=== PATIENT | female | born 1955 | race Caucasian/White ===

== ENCOUNTER 2023-12-05 13:53 | Emergency (ER) | payer OTHER, SELFPAY ==
[2023-12-05] VITALS (8 sets, daily range): BP systolic 121–149; BP diastolic 65–84; PULSE 73–98; BMI 35.4
[2023-12-05] MEDS: ZOFRAN 4 MG IV (14:31)
[2023-12-05 14:38] LABS: % Basophils 0.5 % (0-2); % Eosinophils 0.2 % (0-6); % Immature Granulocytes 0.6 % (0-0.5); % Lymphocytes 7.9 % (20.5-51.1); % Monocytes 3.3 % (1.7-9.3); % Neutrophils 87.5 % (42.2-75.2); Absolute Basophils 0.1 10^3/uL (0-0.2); Absolute Immature Granulocytes 0.1 10^3/uL (0-0.05); Absolute Lymphocytes 0.9 10^3/uL (1.2-3.4); Absolute Monocytes 0.4 10^3/uL (0.1-0.6); Absolute Neutrophils 10.4 10^3/uL (1.4-6.5); Hematocrit 44.1 % (37.0-47.0); Hemoglobin 14.9 g/dL (12.0-16.0); Mean Corp Hgb Conc. 33.8 g/dL (33.0-37.0); Mean Corpuscular Volume 82.7 fL (81.0-99.0); Mean Platelet Volume 10.7 fL (7.4-10.4); Nucleated Red Blood Cells % 0 %; Platelet Count 206 10^3/uL (130-400); Red Blood Cell Count 5.33 10^6/uL (4.20-5.40); Red Cell Dist. Width 13.3 % (11.5-14.5); White Blood Cell Count 11.9 10^3/uL (4.8-10.8)
[2023-12-05 15:55] LABS: ALT (SGPT) 32 U/L (0-35); AST (SGOT) 32 U/L (14-36); Albumin 4.7 g/dl (3.5-5.0); Alkaline Phosphatase 75 U/L (38-126); Blood Urea Nitrogen 20 mg/dl (7-17); Calcium 9.5 mg/dl (8.4-10.2); Carbon Dioxide 28 mmol/L (22-30); Chloride 102 mmol/L (98-107); Estimated Creatinine Clearance 83 ml/min; Glucose 134 mg/dl (70-99); Potassium 4.6 mmol/L (3.5-5.1); Sodium 140 mmol/L (135-145); Total Bilirubin 0.4 mg/dl (0.2-1.3); Total Protein 7.3 g/dl (6.3-8.2); eGFR > 60.00
[2023-12-05 17:14] LABS: Urine Albumin Trace (Neg - Trace); Urine Bilirubin Negative (Negative); Urine Character Clear (Clear); Urine Color Yellow; Urine Glucose Trace (Negative); Urine Ketone Negative (Negative); Urine Leukocyte Negative (Negative); Urine Nitrite Negative (Negative); Urine Occult Blood Negative (Negative); Urine Urobilinogen Negative (Neg - 1+)
--- NOTE | 2023-12-05 17:46 | ED.GENMED ---
History of Present Illness
<Wm Martinez MD, Resident - Last Filed: 12/08/23 08:14>
General
Chief Complaint: Dizziness
Source: patient
Exam Limitations: none
Time Seen by Provider: 12/05/23 16:34
History of Present Illness
History of Present Illness:
)68-year-old female with past medical history of Sjogren, hypothyroidism, CAD, Hodgkin's lymphoma (Chemo-Port removed this September) presenting with dizziness which she defines as everything around her spinning. This started around 9 AM when she got
out of bed and was standing. Also felt very nauseous. Symptoms lasted until 3 PM. She does not mention any tinnitus or headache. Does not mention starting any new meds for about 3 weeks ago she increase her furosemide from 20 mg once every day
to 20 and 40 every other day. No abdominal pain. No vomiting or diarrhea.
She had a similar episode 2 years ago which she said was found to be due to hyponatremia. She has not had any migraine attacks for the past 20 years.
If applicable-neuro sx onset
Onset of symptoms known: Yes
Date of onset of symptoms: 12/05/23
Time of onset of symptoms: 09:00
Review of Systems
<Wm Martinez MD, Resident - Last Filed: 12/08/23 08:14>
Review of Systems
Allergies reviewed?: Yes
All Other Systems: ROS reviewed and negative except as documented in HPI and ROS
Phy Exam
<Wm Martinez MD, Resident - Last Filed: 12/08/23 08:14>
General Physical Exam
General Presentation: mild distress
General age: appears stated age
General Skin: warm and dry
General Habitus: normal
General Mental: alert
General Hydration: appears well hydrated
Eye Exam
Eye Exam: EOMI
Eye Exam General: lateral nystagmus: bilateral
Cardiovascular Exam
Cardiovascular Exam: regular rate/rhythm, no edema, no JVD and no murmur
Pulmonary Exam
Pulmonary Exam: lungs clear, no respiratory distress, no crackles and no wheezing
Gastrointestinal Exam
Gastrointestinal Exam: normal bowel sounds, non tender, soft and non distended
Neurological Exam
Neurological Exam: alert, oriented x3, CN II-XII intact, no motor deficits, normal reflexs, no sensory deficits, speech normal and normal gait
Course
<Wm Martinez MD, Resident - Last Filed: 12/08/23 08:14>
Orders/Labs/Results
Orders:
Orders
12/05/23 13:55
EKG [Electrocardiogram (*1)] Urgent
Reason for Study: Vertigo / Dizzy
12/05/23 13:56
EKG- Treatment ONCE
12/05/23 14:26
Complete Blood Count/With Diff Urgent
12/05/23 14:30
Ondansetron Injectable [Zofran] 4 mg .ROUTE .STK-MED ONE
12/05/23 14:31
Ondansetron Injectable [Zofran] 4 mg IV NOW STA
12/05/23 15:24
Comprehensive Metabolic Panel Urgent
12/05/23 17:02
UA Reflex to Culture [Urinalysis Reflex To Culture] Urgent
Date Specimen was Collected: 12/05/23
Time Specimen was Collected: 16:58
12/05/23 17:33
Orthostatic VS- Treatment ONCE
Abnormal Lab Results
12/05/23 12/05/23 12/05/23
14:26 15:24 17:02
WBC 11.9 H 10^3/uL
(4.8-10.8)
MPV 10.7 H fL
(7.4-10.4)
Abs Immat Gran (auto) 0.1 H 10^3/uL
(0-0.05)
Absolute Neuts (auto) 10.4 H 10^3/uL
(1.4-6.5)
Absolute Lymphs (auto) 0.9 L 10^3/uL
(1.2-3.4)
Immature Gran % 0.6 H %
(0-0.5)
Neutrophils % 87.5 H %
(42.2-75.2)
Lymphocytes % 7.9 L %
(20.5-51.1)
BUN 20 H mg/dl
(7-17)
Creatinine 0.5 L mg/dL
(0.6-1.0)
Glucose 134 H mg/dl
(70-99)
Urine Glucose Trace A
(Negative)
12/05/23 14:26
12/05/23 15:24
Vital Signs
Initial and Last Documented VS:
Initial Vital Signs
Temp Pulse Resp BP Pulse Ox
97.5 F 67 22 149/74 93
12/05/23 13:57 12/05/23 13:57 12/05/23 13:57 12/05/23 13:57 12/05/23 13:57
Last Documented Vital Signs
Temp Pulse Resp BP Pulse Ox
97.5 F 78 21 143/82 94
12/05/23 13:57 12/05/23 18:15 12/05/23 18:15 12/05/23 18:00 12/05/23 18:15
<Suhas Schneider MD - Last Filed: 12/05/23 18:27>
Orders/Labs/Results
Orders:
Orders
12/05/23 13:55
EKG [Electrocardiogram (*1)] Urgent
Reason for Study: Vertigo / Dizzy
12/05/23 13:56
EKG- Treatment ONCE
12/05/23 14:26
Complete Blood Count/With Diff Urgent
12/05/23 14:30
Ondansetron Injectable [Zofran] 4 mg .ROUTE .STK-MED ONE
12/05/23 14:31
Ondansetron Injectable [Zofran] 4 mg IV NOW STA
12/05/23 15:24
Comprehensive Metabolic Panel Urgent
12/05/23 17:02
UA Reflex to Culture [Urinalysis Reflex To Culture] Urgent
Date Specimen was Collected: 12/05/23
Time Specimen was Collected: 16:58
12/05/23 17:33
Orthostatic VS- Treatment ONCE
Abnormal Lab Results
12/05/23 12/05/23 12/05/23
14:26 15:24 17:02
WBC 11.9 H 10^3/uL
(4.8-10.8)
MPV 10.7 H fL
(7.4-10.4)
Abs Immat Gran (auto) 0.1 H 10^3/uL
(0-0.05)
Absolute Neuts (auto) 10.4 H 10^3/uL
(1.4-6.5)
Absolute Lymphs (auto) 0.9 L 10^3/uL
(1.2-3.4)
Immature Gran % 0.6 H %
(0-0.5)
Neutrophils % 87.5 H %
(42.2-75.2)
Lymphocytes % 7.9 L %
(20.5-51.1)
BUN 20 H mg/dl
(7-17)
Creatinine 0.5 L mg/dL
(0.6-1.0)
Glucose 134 H mg/dl
(70-99)
Urine Glucose Trace A
(Negative)
12/05/23 14:26
12/05/23 15:24
Vital Signs
Initial and Last Documented VS:
Initial Vital Signs
Temp Pulse Resp BP Pulse Ox
97.5 F 67 22 149/74 93
12/05/23 13:57 12/05/23 13:57 12/05/23 13:57 12/05/23 13:57 12/05/23 13:57
Last Documented Vital Signs
Temp Pulse Resp BP Pulse Ox
97.5 F 78 21 143/82 94
12/05/23 13:57 12/05/23 18:15 12/05/23 18:15 12/05/23 18:00 12/05/23 18:15
<Wm Martinez MD, Resident - Last Filed: 12/08/23 08:14>
MDM/Problems Addressed
Differential Diagnosis Includes:
BPPV, dehydration
<Wm Martinez MD, Resident - Last Filed: 12/08/23 08:14>
*Critical Care Note
Total Time (30-74mins, 75-104mins- exclusive of procedures): Not Applicable
ED Attending Note
<Wm Martinez MD, Resident - Last Filed: 12/08/23 08:14>
-
Portions of this chart may have been created with voice recognition software.� Occasional wrong word or��sound alike� substitutions may have occurred due to the inherent limitations of voice recognition software.
<Suhas Schneider MD - Last Filed: 12/05/23 18:27>
ED Attending Note
Patient seen and examined by attending physician: Yes
ED Attending Note:
Patient with history of congestive heart failure on Lasix, presents to ED secondary to sudden onset of room spinning sensation, when she woke up this morning and was walking to the restroom. Patient reports associated nausea sensation without
vomiting. Patient immediately sat down, but her symptoms persist for the next 5 to 6 hours. Fortunately at the time of evaluation ED, patient states that her symptoms have mostly resolved. Unfortunately due to her symptoms, patient has had
anything to eat or drink all day long. Denies headache. Denies chest pain or chest palpitations. Denies blurred vision. Denies loss of sensation or weakness. Denies difficulty with ambulation. Denies recent illness. Of note, 2 weeks ago,
patient's Lasix was increased to 40 mg every other day, along with 20 mg daily. Patient states that she has had similar symptoms in the past and treated for vertigo, but never this severe.
Physical Exam
General: no apparent distress, not acutely ill. afebrile
Head: nc/at. eomi.
Neck: supple. no meningeal signs.
Heart: s1/s2 regular rate and rhythm, no murmur. equal radial pulses.
Lungs: no acute respiratory distress. clear bilaterally
Abdomen: normal bowel sounds. not tender.
Neuro: alert and oriented. no focal neurological deficits. normal speech. normal gait.
Skin: no rash
Psychiatric: well kept. interactive and cooperative
Extremities: no edema. no calf tenderness.
History and exam consistent with likely vertigo, exacerbated by potential overdiuresis from increased Lasix recently. Otherwise, patient is afebrile, hemodynamically stable, and without any neurologic deficit, with normal gait noted in ED. Patient
feels comfortable going home at this time, with prescription for meclizine to be taken as needed, along with outpatient physical therapy evaluation, if her symptoms persist. Patient will be also advised to follow-up with her manager regarding
the reason for increased Lasix. Patient will return to ED with worsening symptoms. Patient is in stable condition without any distress, at time of discharge to the care of her sister
Discharge Plan
Departure
Patient Disposition: Home (Routine Discharge)
Date of Disposition: 12/05/23
Time of Disposition: 18:18
Patient with high blood pressure during this ER visit?: Yes
Condition: Good
Discharge Problem:
Dizziness
Instructions: Dizziness
Prescriptions:
New
meclizine 25 mg tablet
25 mg PO BID PRN (Reason: dizziness) Qty: 20 0RF
No Action
furosemide [Lasix] 40 mg Tablet
40 mg PO Q OTHER DAY
atorvastatin 10 mg Tablet
10 mg PO HS
famotidine 40 mg Tablet
40 mg PO HS
amlodipine 2.5 mg Tablet
2.5 mg PO DAILY
acetaminophen 500 mg Tablet
1,000 mg PO BID
levothyroxine 75 mcg Tablet
75 mcg PO DAILY
flaxseed oil 1,000 mg Capsule
1,000 mg PO BID
potassium 99 mg Tablet
99 mg PO DAILY
Rx Instructions:
99/595
ascorbic acid (vitamin C) [Vitamin C] 500 mg Tablet
500 mg PO DAILY
pantoprazole [Protonix] 40 mg Tablet,Delayed Release (Dr/Ec)
40 mg PO DAILY
naproxen sodium [Aleve] 220 mg Tablet
220 mg PO BID
salmeterol 50 mcg/dose Blister With Device
1 inh INHALATION BID
docusate sodium [Colace] 100 mg Capsule
100 mg PO HS
aspirin 81 mg Tablet
81 mg PO QPM
furosemide [Lasix] 20 mg Tablet
20 mg PO Q OTHER DAY
hydroxychloroquine 200 mg Tablet
200 mg PO BID
albuterol sulfate 90 mcg/actuation Hfa Aerosol Inhaler
2 puff INHALATION Q6H PRN (Reason: SOB)
Rx Instructions:
1-2 puffs as needed
fluticasone propionate 50 mcg/actuation Tappen,Suspension
2 spray INTRANASAL DAILY
Rx Instructions:
both nostrils
magnesium 200 mg Tablet
400 mg PO HS
Multi-Vitamin W/Minerals Capsule
1 cap PO DAILY
cyclosporine [Restasis] 0.05 % Dropperette
1 drp OPHTHALMIC (EYE) Q12H
duloxetine [Cymbalta] 60 mg Capsule,Delayed Release(Dr/Ec)
60 mg PO DAILY
Ducor Allergy and Sinus 2.65 % Aerosol,Tappen
2 ea INTRANASAL BID
Prolia 60 mg/mL Syringe
60 mg SC [id number]
Vitamin D3 2,400 UNITS
2,400 units PO DAILY
Referrals:
Tremayne Nicolas, DO [Family Provider] -
Activity Restrictions/Additional Instructions:
As discussed, please follow-up with your primary care physician and/or manager for further evaluation and treatment. Your prescription has been sent electronically to [facility] in [place].
Interventions
Interventions:
*Risk Screen - Suicide Last Done: 12/05/23 13:57
*General Assessment Last Done: 12/05/23 13:57
*Neglect/Abuse Screening Last Done: 12/05/23 13:57
ED- Fall Risk Assessment Last Done: 12/05/23 14:22
*ED COVID-19 Vaccine History Last Done: 12/05/23 13:57
*Nursing Disposition Last Done: 12/05/23 18:43
ED- Neurological Assessment Last Done: 12/05/23 14:22
ED- Cardiac Assessment Last Done: 12/05/23 14:22
ED Swallowing Screen Last Done: 12/05/23 14:22
Discharge Date and Time
Discharge Date/Time: 12/05/23 18:44
Print Language: SYRIAC
== END 2023-12-05 18:44 | disposition home or self-care (01) ==
LOC: EMR 13:53
PROVIDERS: EMERGENCY PHYSICIAN Emergency Medicine; FAMILY PHYSICIAN Family Medicine
DX: R42 Dizziness and giddiness (principal); M35.00 Sjogren syndrome, unspecified; E03.9 Hypothyroidism, unspecified; I25.10 Atherosclerotic heart disease of native coronary artery without angina pectoris; E87.1 Hypo-osmolality and hyponatremia
CPT/HCPCS: 99283; 96374; 80053; 81003; 85025; 93005